=== PATIENT | male | born 1970 | race Hispanic/Latino ===

== ENCOUNTER 2016-10-30 21:58 | Emergency (ER) | payer SELFPAY ==
[2016-10-30 22:08] VITALS: BP 136/89; RESP 18; TEMP 98.1; O2SAT 100
[2016-10-30 23:38] LABS: ALB/GLOB RATIO 1.6 (1.0-2.1); ALCOHOL SERUM 44 mg/dl (0-10); ALKALINE PHOSPHATASE 61 U/L (38-126); ALT/SGPT 33 U/L (21-72); AST/SGOT 22 U/L (17-59); BILIRUBIN,TOTAL 0.3 mg/dl (0.2-1.3); BLOOD UREA NITROGEN 13 mg/dl (9-20); CALCIUM 9.4 mg/dL (8.4-10.2); CARBON DIOXIDE 26 mmol/L (22-30); CHLORIDE 102 mmol/L (98-107); GFR AFRICAN-AMERICAN > 60; GLUCOSE,RANDOM 86 mg/dL (75-110); MAGNESIUM 2.2 MG/DL (1.6-2.3); PHOSPHOROUS 3.4 mg/dl (2.5-4.5); POTASSIUM 3.9 MMOL/L (3.6-5.0); SODIUM 142 mmol/l (132-148); TOTAL PROTEIN 7.6 G/DL (6.3-8.2)
--- NOTE | 2016-10-31 00:08 | ED PDOC ---
HPI: Chest Pain Time Seen by Provider: 10/30/16 22:10 Chief Complaint (Nursing): Chest Pain Chief Complaint (Provider): Chest Pain History Per: Patient History/Exam Limitations: no limitations Onset/Duration Of Symptoms: Days (x1), Waxing/Waning Current Symptoms Are (Timing): Still Present Context: Other (Possibly stress related, as per patient) Associated Symptoms: Dyspnea (intermittently) Additional Complaint(s): 46 year old male presents to ED with complaints of chest pain x1 day and has a past medical history of allergies and ankylosing spondylitis. Notes that he woke up with the pain yesterday morning and describes it as waxing/waning while changing location (sternal, left-sided, right sided). Notes intermittently associated SOB. Patient states that he has had increasing work-related stress x1 -2 weeks and believes that the pain may be secondary to anxiety. Notes that he has had difficulty sleeping x2 weeks secondary to stress and is currently suffering from seasonal allergies. Confirms that he recently started albuterol and that he took more than he has typically used in the last 2 months due to chest pain. (+) intermittent and worsening palpitations today. (-) homicidal/ suicidal ideation, hallucinations, leg swelling, recent surgery, prolonged immobilization, cough, fever, or numbness/tingling. Admits to drinking a couple of glasses of wine today and notes that he has increased the amount that he usually drinks secondary to stress. Notes that a friend recommended coming into the ED for an evaluation of chest pain. PCP: Dr. Casillas in [facility] - Risk Factors PE Risk Factors: Neg: Extremity Immobilization/Fx, Decreased Mobilty /Activity TAD Risk Factors: Neg: Hypertension Past Medical History Reviewed: Historical Data, Nursing Documentation, Vital Signs Vital Signs: Last Vital Signs Temp 98.1 F 10/30/16 22:04 Pulse 90 10/31/16 00:22 Resp 18 10/30/16 22:04 BP 136/89 10/30/16 22:04 Pulse Ox 100 10/31/16 02:28 - Medical History PMH: Denies: No Chronic Diseases Other PMH: ankylosing spondylitis - Surgical History Surgical History: Denies: No Surg Hx Other surgeries: Ankle surgery - Family History Family History: States: Other Denies: No Known Family Hx Other Family History: PE, DVT, ankylosing spondylitis, myopathy - Social History Alcohol: Social - Allergies Allergies/Adverse Reactions: Allergies Allergy/AdvReac Type Severity Reaction Status Date / Time No Known Allergies Allergy Verified 10/30/16 22:04 JANA Risk Score for UA/NSTEMI - JANA Risk Score Age > 64: NO Aspirin use in past 7 days: NO Severe Angina: NO JANA Score: 0 Risk %: 5% Curb-65 Severity Score - CURB-65 Severity Score Confusion: No Respiratory Rate greater than/equal to 30: No Systolic BP <90 or Diastolic BP less than/equal 60mmHg: No Age >64: No Curb-65 Score: 0 Percentage 30-day mortality: 0.6% Wells Criteria for PE - Wells Criteria for Pulmonary Embolism Clinical Signs and Symptoms of DVT: No Heart Rate >100: No Immobilization at least 3 days;Surgery previous 4 weeks: No Previous, objectively diagnosed PE or DVT: No Hemoptysis: No Malignancy w/treatment within 6 months, or palliative: No Total Score: 0 Review of Systems ROS Statement: Except As Marked, All Systems Reviewed And Found Negative Constitutional: Negative for: Fever Cardiovascular: Positive for: Chest Pain, Palpitations Respiratory: Positive for: Shortness of Breath. Negative for: Cough Musculoskeletal: Negative for: Other (leg swelling) Neurological: Negative for: Numbness Psych: Negative for: Psychosis, Suicidal ideation, Other (homicidal ideation) Physical Exam - Reviewed Nursing Documentation Reviewed: Yes Vital Signs Reviewed: Yes - Physical Exam Appears: Positive for: Non-toxic, No Acute Distress Head Exam: Positive for: ATRAUMATIC Skin: Positive for: Normal Color, Warm, Dry Eye Exam: Positive for: Normal appearance ENT: Positive for: Normal ENT Inspection Neck: Positive for: Normal Cardiovascular/Chest: Positive for: Regular Rate, Rhythm. Negative for: Murmur Respiratory: Positive for: Normal Breath Sounds. Negative for: Respiratory Distress Gastrointestinal/Abdominal: Positive for: Normal Exam Extremity: Positive for: Normal ROM. Negative for: Deformity Neurologic/Psych: Positive for: Alert, Oriented. Negative for: Motor/Sensory Deficits - Laboratory Results Result Diagrams: 10/30/16 22:41 10/30/16 22:41 - ECG ECG: Positive for: Interpreted By Me, Viewed By Me ECG Rhythm: Positive for: Normal QRS, Normal ST Segment, Sinus Rhythm Rate: 90 O2 Sat by Pulse Oximetry: 100 (RA) Pulse Ox Interpretation: Normal - Radiology X-Ray: Interpreted by Me, Viewed By Me X-Ray Interpretation: No Acute Disease Nexus Criteria: Negative Medical Decision Making Medical Decision Makin Initial impression: chest pain DDx: anxiety, costochondritis, electrolyte abnormality, PE, hyperthyroid, anemia Initial plan: * EKG * EtOH serum * Labs * Magnesium * Phosphorus * TSH * Trop I * D Dimer * CXR Scribe Attestation: Documented by Gregoria Hannah acting as a scribe for Keo Billy MD. Scribe Attestation: All medical record entries made by the Scribe were at my direction and personally dictated by me. I have reviewed the chart and agree that the record accurately reflects my personal performance of the history, physical exam, medical decision making, and the department course for this patient. I have also personally directed, reviewed, and agree with the discharge instructions and disposition. Disposition - Clinical Impression Clinical Impression: Chest pain - Disposition Disposition: Transfer of Care Disposition Time: 00:00 Condition: STABLE Patient Signed Over To: Keo Billy Handoff Comments: Pending Er workup, reassessment and final ER disposition
[2016-10-31 00:13] LABS: THYROID STIMULATING HORMONE 1.95 mIU/ML (0.46-4.68)
[2016-10-31 00:22] VITALS: PULSE 90
--- NOTE | 2016-10-31 00:27 | ED PDOC ---
- Laboratory Results Result Diagrams: 10/30/16 22:41 10/30/16 22:41 - ECG O2 Sat by Pulse Oximetry: 100 (RA) Medical Decision Making Medical Decision Makin Transfer of care of patient from Dr. Hickman to provider pending labs and re- eval 0055 Labs reviewed - no clinically significant abnormalities. Patient is stable for discharge home. Dx: atypical chest pain, anxiety Patient confirms that he will follow up with PCP in x1-2 days. Scribe Attestation: Documented by Gregoria Hannah acting as a scribe for Keo Billy MD. Scribe Attestation: All medical record entries made by the Scribe were at my direction and personally dictated by me. I have reviewed the chart and agree that the record accurately reflects my personal performance of the history, physical exam, medical decision making, and the department course for this patient. I have also personally directed, reviewed, and agree with the discharge instructions and disposition. Disposition - Clinical Impression Clinical Impression: Atypical chest pain, Anxiety - POA Present On Arrival: None - Disposition Referrals: [facility] [Outside] Disposition: Routine/Home Disposition Time: 00:55 Condition: STABLE Instructions: Chest Pain (ED)
[2016-10-31 01:10] LABS: BASO # 0.1 K/uL (0.0-0.2); BASO % 0.8 % (0.0-2.0); EOS # 0.1 K/uL (0.0-0.7); EOS % 1.3 % (0.0-4.0); HEMATOCRIT 45.8 % (35.0-51.0); LYMPH # 2.3 K/uL (1.0-4.3); MEAN CELL VOLUME 86.7 fl (80.0-94.0); MEAN CORPUSCULAR HEMOGLOBIN 29.1 pg (27.0-31.0); MEAN CORPUSCULAR HGB CONC 33.6 g/dL (33.0-37.0); MEAN PLATELET VOLUME 11.1 fl (7.2-11.7); MONO # 0.8 K/uL (0.0-0.8); MONO % 8.5 % (0.0-10.0); NEUT # 5.7 K/uL (1.8-7.0); NEUT % 63.4 % (50.0-75.0); RED CELL DISTRIBUTION WIDTH 12.8 % (11.5-14.5)
--- NOTE | 2016-10-31 10:26 | RAD ---
HISTORY: chest pain COMPARISON: None available. TECHNIQUE: Chest PA and lateral FINDINGS: LUNGS: No focal consolidation. Please note that chest x-ray has limited sensitivity for the detection of pulmonary masses. PLEURA: No significant pleural effusion identified. No definite pneumothorax . CARDIOVASCULAR: Heart size appears within normal limits. Atherosclerotic calcifications of the aortic knob. OSSEOUS STRUCTURES: No acute osseous abnormality identified. VISUALIZED UPPER ABDOMEN: Unremarkable. OTHER FINDINGS: None. IMPRESSION: No focal consolidation, significant pleural effusion, or definite pneumothorax identified.
--- NOTE | 2016-10-31 14:34 | CARD ---
APPROVED REPORT EKG Measurement Heart [id number] VT [id number] <Conclusion> Normal sinus rhythm Nonspecific intraventricular conduction delay Borderline ECG
== END 2016-10-31 01:08 | disposition home or self-care (01) ==
LOC: H.ER 21:58
DX: R07.89 Other chest pain (principal); F41.9 Anxiety disorder, unspecified
CPT/HCPCS: 71020; 80053; 83735; 84100; 84443; 84484; 85025; 85378; 93005; 99282; G0480